=== PATIENT | female | born 1990 | race Caucasian/White ===

== ENCOUNTER 2020-08-21 12:03 | Emergency (ER) | payer OTHER ==
[~2020-08-21] VITALS: Ht 162.6 cm; Wt 90.0 kg
[2020-08-21] MEDS ORDERED: SERT25TA21 (12:14)
[2020-08-21] MEDS ORDERED: NALT50TA4 (12:14)
[2020-08-21] MEDS ORDERED: MECLIZINE 25 MG TABLET PO ONE (12:55)
[2020-08-21 13:24] LABS: BASO # 0.1 10^3/uL (0.0-0.2); BASO % 0.5 % (0.0-1.0); EOS # 0.1 10^3/uL (0.0-0.5); EOS % 0.7 % (0.0-3.0); HEMATOCRIT 39.1 % (36.0-47.0); HEMOGLOBIN 12.5 g/dl (12.0-15.5); LYMPH # 1.8 10^3/uL (1.5-5.0); LYMPH % 18.9 % (24.0-44.0); MONO # 0.5 10^3/uL (0.0-0.8); MONO % 5.5 % (2.0-8.0); NEUTROPHILS # 7.1 10^3/uL (1.5-8.5); NEUTROPHILS % 73.1 % (36.0-66.0); PLATELET COUNT, AUTOMATED 249 10^3/uL (150-450); RED BLOOD COUNT 4.16 10^6/uL (4.00-5.40); WHITE BLOOD COUNT 9.7 10^3/uL (4.0-10.0)
[2020-08-21 13:36] LABS: INR 1.02; PROTHROMBIN TIME 13.6 SECONDS (12.5-14.3)
[2020-08-21 13:49] LABS: HCG, SERUM QUALITATIVE NEGATIVE (NEGATIVE)
[2020-08-21 13:52] LABS: BLOOD UREA NITROGEN 12 MG/DL (7-18); CALCIUM LEVEL 9.4 MG/DL (8.5-10.1); CARBON DIOXIDE LEVEL 30 MEQ/L (21-32); CHLORIDE LEVEL 108 MEQ/L (98-107); CK-MB VALUE MASS < 1.0 NG/ML (<3.6); CPK CREATINE PHOSPHOKINASE 71 U/L (26-192); CREATININE FOR GFR 0.74 MG/DL (0.55-1.30); ETHYL ALCOHOL (ETHANOL) < 0.003 % (0.000-0.010); GLOMERULAR FILTRATION RATE > 60.0 (>60); GLUCOSE, FASTING 105 MG/DL (70-100); MB/CK RELATIVE INDEX 1.41 (< OR =4); POTASSIUM SERUM 3.8 MEQ/L (3.5-5.1); SODIUM LEVEL 139 MEQ/L (136-145); TROPONIN I < 0.02 NG/ML (< 0.10)
[2020-08-21 14:08] LABS: AMPHETAMINES LEVEL URINE NEGATIVE (NEGATIVE); BARBITURATES URINE NEGATIVE (NEGATIVE); BENZODIAZEPINES URINE NEGATIVE (NEGATIVE); CANNABINOIDS URINE POSITIVE (NEGATIVE); COCAINE METABOLITE URINE NEGATIVE (NEGATIVE); METHADONE URINE NEGATIVE (NEGATIVE); OPIATES URINE NEGATIVE (NEGATIVE); PHENCYCLIDINE URINE NEGATIVE (NEGATIVE)
--- NOTE | 2020-08-21 14:38 | REP ---
INDICATION: Syncope. COMPARISON: None. TECHNIQUE: Axial CT images with multiplanar reformations. FINDINGS: No acute bleed or acute large vessel territorial infarct. Ventricles, cisterns and sulci are within normal limits. No mass effect or midline shift. No abnormal fluid collections. The visualized paranasal sinuses and mastoid air cells are clear. IMPRESSION: No acute findings. Normal examination. <Electronically signed by Naveed Rothman > 08/21/20 [id number]
[2020-08-21] MEDS ORDERED: MECL1TAB31 PO (14:47)
[2020-08-21 14:58] VITALS: BP 130/67
--- NOTE | 2020-08-21 21:14 | ECGEPIP ---
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
== END 2020-08-21 15:01 | disposition home or self-care (01) ==
LOC: M ED 12:03
DX: H83.09 Labyrinthitis, unspecified ear (principal); I45.19 Other right bundle-branch block; I51.9 Heart disease, unspecified; F17.200 Nicotine dependence, unspecified, uncomplicated; F19.10 Other psychoactive substance abuse, uncomplicated

== ENCOUNTER 2021-07-14 21:52 | Emergency (ER) | payer OTHER ==
[~2021-07-14] VITALS: Ht 162.6 cm; Wt 81.4 kg
[~2021-07-14 21:52] MED LIST: MECL1TAB31 PO; NALT50TA4; SERT25TA21
[2021-07-14 21:53] VITALS: BP 137/84
== END 2021-07-15 00:15 | disposition left against medical advice (07) ==
LOC: M ED 21:52
DX: Z53.21 Procedure and treatment not carried out due to patient leaving prior to being seen by health care provider (principal)

== ENCOUNTER → 2024-08-13 | Outpatient (REF) ==
[~2024-08-13] MED LIST changes: +MECL-209 PO; -MECL1TAB31 PO
== END ==
LOC: M PLAIMG 12:05
PROVIDERS: ATTEND Internal Medicine
DX: M25.552 Pain in left hip (principal); M25.572 Pain in left ankle and joints of left foot